=== PATIENT | male | born 1990 | race Caucasian/White ===

== ENCOUNTER 2023-12-25 11:28 | Day surgery (SDC) | payer OTHER ==
[2023-12-17 11:11] LABS: ALBUMIN 4.1 G/DL (3.4-5.0); ALBUMIN/GLOBULIN RATIO 1.2 (1.1-1.5); ALKALINE PHOSPHATASE 51 IU/L (46-116); BLOOD UREA NITROGEN 10 MG/DL (7-18); BUN/CREATININE RATIO 10.3 (10.0-20.0); CALCIUM 9.1 MG/DL (8.5-10.1); CHLORIDE 105 MMOL/L (99-107); CREATININE 0.97 MG/DL (0.60-1.10); PRE OP ALT 38 U/L (30-65); PRE OP ANION GAP 5 (8-16); PRE OP AST 18 U/L (10-37); PRE OP BILIRUB, TOTAL 0.4 MG/DL (0.0-1.0); PRE OP GLUCOSE 106 MG/DL (70-104); PRE OP POTASSIUM 4.5 MMOL/L (3.4-5.1); PRE OP SODIUM 140 MMOL/L (135-145); TOTAL CARBON DIOXIDE 30.3 MMOL/L (24-32); TOTAL PROTEIN 7.4 G/DL (6.4-8.2); eGFR 90 ML/MIN
[2023-12-17 13:05] LABS: EOSINOPHILS % (AUTO) 3 % (0-5); HEMATOCRIT 42.3 % (43.5-53.7); HEMOGLOBIN 14.2 G/DL (12.5-16.3); LYMPHOCYTES % 40 % (24-44); MEAN CORPUSCULAR HEMOGLOBIN 30.2 PG (27-31.2); MEAN CORPUSCULAR HGB CONC 33.6 % (32-36); MEAN CORPUSCULAR VOLUME 89.9 FL (81-97); MONOCYTES % 9 % (0-12); PLATELET COUNT 204 X10'3 (130-400); RED CELL DISTRIBUTION WIDTH 12.7 % (11-16); SEGMENTED NEUTROPHILS % 47 % (36-66); WHITE BLOOD COUNT 4.9 X10'3 (4.5-11.0)
[2023-12-17 13:06] LABS: BASOPHILS % 1 % (0-2); EOSINOPHILS # (AUTO) 0.1 X10'3 (0-0.9); MONOCYTES # (AUTO) 0.4 X10'3 (0-0.9); NEUTROPHILS # (AUTO) 2.3 X10'3 (>=1.4)
[2023-12-25] VITALS (10 sets, daily range): BP systolic 110–141; BP diastolic 68–82; PULSE 60–92; RESP 11–16; TEMP 98.5; O2SAT 95–99
[~2023-12-25] VITALS: Ht 180.3 cm; Wt 95.5 kg
[~2023-12-25 11:28] MED LIST: VITD400T PO; methylene blue (5mg/ml) 50mg/10ml ampul IV ONE
[2023-12-25] MEDS ORDERED: morphine 4 MG/ML inj SYRINge IV PRN (11:45)
[2023-12-25] MEDS ORDERED: hydrALAZINE 20mg/ml inj. IV PRN (11:45)
[2023-12-25] MEDS ORDERED: labetalol 20mg/4ml (5mg/ml) syringe IV PRN (11:45)
[2023-12-25] MEDS ORDERED: fentaNYL/PF 50MCG/1 ML 2ML syringe IV PRN ×2 (11:45)
[2023-12-25] MEDS ORDERED: ringers solution, lacted 1,000 ML IV SCH (11:45)
[2023-12-25] MEDS ORDERED: ondansetron/PF 4mg/2ml inj IV PRN (11:45)
[2023-12-25] MEDS: famotidine 20mg tablet PO ONE (12:05)
[2023-12-25] MEDS: ringers solution, lacted 1,000 ML IV SCH (12:05)
[2023-12-25] MEDS: cefazolin 2gm/D5W 100mL 100 ML IV ONE (12:05)
[2023-12-25] MEDS ORDERED: sevoflurane 250ml liquid IH ONE (12:49)
[2023-12-25] MEDS ORDERED: fentaNYL/PF 50MCG/1 ML 2ML syringe ONE (12:56)
[2023-12-25] MEDS ORDERED: MIDAZolam 1 MG/ML 5ML VIAL ONE (12:57)
[2023-12-25] MEDS ORDERED: propofol inj 20 ML IV ONE (13:07)
[2023-12-25] MEDS ORDERED: dexamethasone sod phosphate 4mg/ml inj. ONE (13:08)
[2023-12-25] MEDS ORDERED: rocuronium 10mg/ml inj IV ONE (13:08)
[2023-12-25] MEDS ORDERED: LIDOcaine 2% (20mg/ml) 5ml vial ONE (13:08)
[2023-12-25] MEDS ORDERED: ondansetron/PF 4mg/2ml inj ONE (13:08)
[2023-12-25] MEDS ORDERED: acetaminophen 1,000mg/100ml IV 100 ML IV ONE (13:11)
[2023-12-25] MEDS: BUPIVAcaine/PF 2.5mg/ml (0.25%) 10ml vial ONE (13:42)
[2023-12-25] MEDS: LIDOcaine 1% 30ml preserv. free vial ONE (13:44)
[2023-12-25] MEDS ORDERED: oxyCODONE/APAP 5-325mg tablet PO PRN (14:25)
[2023-12-25] MEDS: morphine 2 MG/ML inj. syringe IV PRN (14:43)
[2023-12-26] MEDS ORDERED: fentaNYL /PF 50mcg/ml 5ml ampule ONE (16:47)
[2023-12-26] MEDS ORDERED: midazolam 1 mg/ML 2ml injection ONE (16:47)
[2023-12-26] MEDS ORDERED: ROPIVAcaine 0.5% (5mg/ml) 30ml vial ONE (16:48)
[2023-12-26] MEDS ORDERED: LIDOcaine 2% (20mg/ml) 5ml vial ONE (16:48)
[2023-12-26] MEDS ORDERED: ondansetron/PF 4mg/2ml inj ONE (16:48)
[2023-12-26] MEDS ORDERED: propofol inj 20 ML IV ONE (16:48)
== END 2023-12-25 15:05 | disposition home or self-care (01) ==
LOC: PAS 11:28
PROVIDERS: ATTEND Surgery
DX: L05.91 Pilonidal cyst without abscess (principal); K64.8 Other hemorrhoids; Z79.899 Other long term (current) drug therapy
CPT/HCPCS: 11771; 36415; 46946; 80053; 82948; 85025; J0131; J0690; J1100; J2250; J2270; J2405; J2704; J3010; J3490; J7030; J7120; Q9968; Z7506; Z7508; Z7512; A4215; A4618; A6253; A6402; A6407; A6449; A7000; J2795

== ENCOUNTER 2024-10-10 14:18 | Outpatient (CLI) | payer OTHER ==
[~2024-10-10 14:18] MED LIST changes: -methylene blue (5mg/ml) 50mg/10ml ampul IV ONE
--- NOTE | 2024-10-10 15:31 | RADIOLOGY REPORT ---
INDICATION: ARTHRITIS COMPARISON: None TECHNIQUE: 3 views of the lumbar spine were obtained. FINDINGS: Mild levoscoliosis centered at the L3 vertebral body. Mild retrolisthesis of L2 on L3. Mild multilevel degenerative disc disease of the lumbosacral spine. No acute fracture, vertebral compression deformity or aggressive osseous lesions. The paravertebral soft tissues are grossly unremarkable. IMPRESSION: No acute fracture.
== END 2024-10-10 23:59 | disposition home or self-care (01) ==
LOC: RAD 14:18
PROVIDERS: ATTEND Chiropractor
DX: M51.379 Other intervertebral disc degeneration, lumbosacral region without mention of lumbar back pain or lower extremity pain (principal); M41.86 Other forms of scoliosis, lumbar region; M43.16 Spondylolisthesis, lumbar region; M13.80 Other specified arthritis, unspecified site
CPT/HCPCS: 72100

== ENCOUNTER 2024-12-16 10:29 | Outpatient (CLI) | payer OTHER ==
--- NOTE | 2024-12-16 11:30 | RADIOLOGY REPORT ---
[facility] INDICATION: ARTHRITIS COMPARISON: None TECHNIQUE: 4 views of the thoracic spine were obtained. FINDINGS: The thoracic vertebral alignment is normal. Mild multilevel degenerative disc disease of the thoracic spine No acute fracture, vertebral compression deformity or aggressive osseous lesions. The imaged thorax and abdomen are grossly unremarkable. IMPRESSION: No acute fracture.
== END 2024-12-16 23:59 | disposition home or self-care (01) ==
LOC: RAD 10:29
PROVIDERS: ATTEND Chiropractor
DX: M51.34 Other intervertebral disc degeneration, thoracic region (principal); M13.80 Other specified arthritis, unspecified site
CPT/HCPCS: 72070